=== PATIENT | male | born 1985 | race Caucasian/White ===

== ENCOUNTER 2017-06-25 07:24 | Emergency (ER) | payer SELFPAY ==
[2017-06-25 07:28] VITALS: RESP 18; TEMP 97.9; O2SAT 98
[2017-06-25] MEDS ORDERED: NS 1,000 ML IV ONE (07:33)
[2017-06-25] MEDS ORDERED: KETOROLAC 15 MG/1 ML SDV IVP ONE (07:33)
--- NOTE | 2017-06-25 07:59 | EDPHY ---
H & P Stated Complaint: right flank pain this morning 615am Time Seen by Provider: 06/25/17 07:28 HPI/ROS: CHIEF COMPLAINT: Right flank pain History by patient HISTORY OF PRESENT ILLNESS: 31-year-old man with history of kidney stones presents complaining of severe right back and flank pain similar to prior kidney stones. Patient states that today he had some dysuria and stinging on the tip of his penis noticed that his urine looked a little dark, this morning he woke up feeling"sick"but was able to go to work and that worked the back pain began it became severe prompting him to seek medical attention. He denies jalen hematuria but says his urine is brown, which is typical for him when he has a stone. He has had some nausea but no vomiting. He said he got all sweaty when the pain 1st began but denies any fever chills. Patient states he was diagnosed several years ago by CT scan at [facility] and subsequently he has passed several stones but he has never sought medical attention in the emergency department for this. Today the pain was much worse than it has previously been. REVIEW OF SYSTEMS: As in HPI, and all other systems reviewed and are negative Source: Patient - Medical/Surgical History Other PMH: kidney stones - Social History Smoking Status: Never smoked - Physical Exam Exam: General Appearance: Alert, uncomfortable appearing, writhing. Head: Normocephalic, atraumatic Eyes: Pupils equal and round, no pallor or injection. ENT, Mouth: Mucous membranes moist. Neck: No bony tenderness, full range of motion Gastrointestinal: Abdomen is soft and nontender, no masses, bowel sounds normal. Neurological: Awake, alert and oriented x 3, no pronator drift, normal gait, no pronator drift, DTRs 2+ and equal bilaterally in knees and ankles Back: No bony tenderness, no CVA tenderness, full range of motion Skin: Warm and dry, no rashes. Musculoskeletal: Neck is supple, FROM, nontender. Extremities: symmetrical, full range of motion. Psychiatric: Patient has normal affect, there is no agitation. Constitutional: Initial Vital Signs Temperature (C) 36.6 C 06/25/17 07:25 Heart Rate 89 06/25/17 07:25 Respiratory Rate 18 06/25/17 07:25 Blood Pressure 135/96 H 06/25/17 07:25 O2 Sat (%) 98 03/06/18 07:25 O2 Delivery Mode Room Air Allergies/Adverse Reactions: No Known Allergies Allergy (Unverified 06/25/17 07:35) Home Medications: Medication Instructions Recorded Naproxen 500 mg PO BID #30 tablet 06/25/17 Tamsulosin HCl [Flomax 0.4 MG (*)] 0.4 mg PO DAILY #10 cap 06/25/17 Medical Decision Making ED Course/Re-evaluation: 31-year-old man presents with history of kidney stones presents complaining of acute right-sided filling pain similar to prior. Patient was given a L of IV saline and ketorolac 15 mg with complete resolution of his symptoms. Urinalysis showed blood but no evidence of infection. We discussed need for hydration and dietary prevention. The patient has never had stones and lies so he was given a strainer. He is referred to Urology for follow-up given that he said multiple recurrent stones though this is his 2nd ER visit for this. We also discussed return to the precautions for the ER including but not limited to fever, uncontrolled pain or vomiting. - Data Points Laboratory Results: Laboratory Results 06/25/17 07:31 06/25/17 06/25/17 06/25/17 08:24 07:35 07:31 WBC 8.62 10^3/uL 10^3/uL (3.80-9.50) RBC 5.51 10^6/uL 10^6/uL (4.40-6.38) Hgb 16.6 g/dL g/dL (13.7-17.5) POC Hgb 13.9 gm/dL gm/dL (13.7-17.5) Hct 47.9 % % (40.0-51.0) POC Hct 41 % % (40-51) MCV 86.9 fL fL (81.5-99.8) MCH 30.1 pg pg (27.9-34.1) MCHC 34.7 g/dL g/dL (32.4-36.7) RDW 11.9 % % (11.5-15.2) Plt Count 368 10^3/uL 10^3/uL (150-400) MPV 10.3 fL fL (8.7-11.7) Neut % (Auto) 60.2 % % (39.3-74.2) Lymph % (Auto) 29.0 % % (15.0-45.0) [place] % (Auto) 7.9 % % (4.5-13.0) Eos % (Auto) 1.6 % % (0.6-7.6) Baso % (Auto) 0.7 % % (0.3-1.7) Nucleat RBC Rel Count 0.0 % % (0.0-0.2) Absolute Neuts (auto) 5.19 10^3/uL 10^3/uL (1.70-6.50) Absolute Lymphs (auto) 2.50 10^3/uL 10^3/uL (1.00-3.00) Absolute Monos (auto) 0.68 10^3/uL 10^3/uL (0.30-0.80) Absolute Eos (auto) 0.14 10^3/uL 10^3/uL (0.03-0.40) Absolute Basos (auto) 0.06 10^3/uL 10^3/uL (0.02-0.10) Absolute Nucleated RBC 0.00 10^3/uL 10^3/uL (0-0.01) Immature Gran % 0.6 % % (0.0-1.1) Immature Gran # 0.05 10^3/uL 10^3/uL (0.00-0.10) POC Sodium 143 mEq/L mEq/L (135-145) POC Potassium 3.6 mEq/L mEq/L (3.3-5.0) POC Chloride 105 mEq/L mEq/L (97-110) POC BUN 12 mg/dL mg/dL (7-23) POC Creatinine 0.8 mg/dL mg/dL (0.7-1.3) POC Glucose 116 mg/dL H mg/dL (70-100) Urine Color YELLOW Urine Appearance HAZY Urine pH 7.5 (5.0-7.5) Ur Specific [place] 1.015 (1.002-1.030) Urine Protein TRACE H (NEGATIVE) Urine Ketones NEGATIVE (NEGATIVE) Urine Blood 3+ H (NEGATIVE) Urine Nitrate NEGATIVE (NEGATIVE) Urine Bilirubin NEGATIVE (NEGATIVE) Urine Urobilinogen 0.2 EU EU (0.2-1.0) Ur Leukocyte Esterase NEGATIVE (NEGATIVE) Urine RBC 50-182 /hpf H /hpf (0-3) Urine WBC 1-3 /hpf /hpf (0-3) Ur Epithelial Cells TRACE /lpf /lpf (NONE-1+) Amorphous Sediment TRACE /hpf /hpf (NONE-1+) Urine Bacteria TRACE /hpf H /hpf (NONE SEEN) Urine Mucus 1+ /lpf /lpf (NONE-1+) Urine Glucose NEGATIVE (NEGATIVE) Medications Given: Discontinued Medications Sodium Chloride (Ns) 1,000 mls @ 0 mls/hr IV ONCE ONE PRN Reason: Wide Open Stop: 06/25/17 07:34 Last Admin: 06/25/17 07:36 Dose: 1,000 mls Ketorolac Tromethamine (Toradol) 15 mg IVP EDNOW ONE Stop: 06/25/17 07:34 Last Admin: 06/25/17 07:36 Dose: 15 mg Point of Care Test Results: 06/25/17 08:24 POC Sodium 143 POC Potassium 3.6 POC Chloride 105 POC BUN 12 POC Creatinine 0.8 POC Glucose 116 H Departure - Departure Disposition: Home, Routine, Self-Care Clinical Impression: Ureterolithiasis Condition: Good Instructions: Kidney Stones (ED) Additional Instructions: You were seen by Dr. Arlene Evans today. We have treated you for a kidney stone. Make sure you drink plenty of water, at least 2 L a day. Avoid sodas, particularly cola and other dark sodas. You may take Naprosyn twice a day as needed for pain. Take Flomax before bed at night to help the stone pass. You may stop taking this after the stone has passed. Return for any worsening or new concerns, including but not limited to fever, uncontrolled pain or vomiting and unable to keep down fluids or pain medications. Referrals: Juan Pederson MD [Medical Doctor] - As per Instructions Prescriptions: Naproxen 500 mg PO BID #30 tablet Tamsulosin HCl [Flomax 0.4 MG (*)] 0.4 mg PO DAILY #10 cap
[2017-06-25 08:00] LABS: PLATELET COUNT 368 10^3/uL (150-400)
[2017-06-25 09:22] VITALS: BP 103/68; PULSE 73
== END 2017-06-25 09:22 | disposition home or self-care (01) ==
LOC: CED 07:24
DX: N20.1 Calculus of ureter (principal)
CPT/HCPCS: 81003-PO; 81015-PO; 82947-QW; 85025-PO; 96374; J1885